=== PATIENT | female | born 1970 | race Caucasian/White ===

== ENCOUNTER 2018-07-13 12:46 | Emergency (ER) | payer OTHER, BC ==
[~2018-07-13] VITALS: Ht 157.5 cm; Wt 83.9 kg
[2018-07-13 13:11] VITALS: BP 166/77
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
[2018-07-13] MEDS ORDERED: HYDR-3164 PO (14:58)
[2018-07-13] MEDS ORDERED: CYCL10TA2 PO (14:58)
[2018-07-13] MEDS ORDERED: DICL50TA4 PO (14:58)
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
== END 2018-07-13 15:03 | disposition home or self-care (01) ==
LOC: ER 12:46
DX: S22.41XA Multiple fractures of ribs, right side, initial encounter for closed fracture (principal); E11.9 Type 2 diabetes mellitus without complications; F32.9 Major depressive disorder, single episode, unspecified; E78.00 Pure hypercholesterolemia, unspecified; I10 Essential (primary) hypertension; V49.49XA Driver injured in collision with other motor vehicles in traffic accident, initial encounter; Y93.I9 Activity, other involving external motion; Y92.488 Other paved roadways as the place of occurrence of the external cause; Y99.8 Other external cause status
CPT/HCPCS: 71101; 99284

== ENCOUNTER 2020-04-23 14:24 | Emergency (ER) | payer BC, OTHER ==
[~2020-04-23] VITALS: Ht 154.9 cm; Wt 110.0 kg
[~2020-04-23 14:24] MED LIST: CYCL10TA2 PO; DICL50TA4 PO; HYDR-3164 PO
[2020-04-23 15:00] VITALS: BP 123/52
[2020-04-23] MEDS ORDERED: HYDROcodone/APAP 5/325MG 1 TAB TABLET PO ONE (15:15)
[2020-04-23] MEDS ORDERED: ONDANSETRON ODT 4 MG TAB.RAPDIS. PO ONE (15:15)
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
--- NOTE | 2020-04-23 15:44 | RAD ---
EXAM: Left ankle, 3 views; left foot, 3 views. HISTORY: Fall. Pain. COMPARISON: None. FINDINGS: 3 views of the left foot and ankle are obtained. There is a minimally displaced distal fibu lar metaphysis. There is a tiny corticated ossicle inferior to the medial malleolus, likely due to th e sequela of remote injury. There is a tiny ossicle along the anterior talus, likely bridging and avu lsion fracture fragment of uncertain chronicity. The ankle mortise is intact. There is no osteochondr al lesion. There is a moderate plantar spur. There is enthesopathy at the Achilles tendon insertion. There is a mild hallux valgus deformity. IMPRESSION: 1. Minimally displaced distal fibular metaphyseal fracture. 2. Tiny ossicle inferior to the medial malleolus, likely due to sequela of remote injury. There is al so a tiny suspected avulsion fracture fragment of uncertain chronicity along the anterior talus. 3. Moderate plantar spur. 4. Mild hallux valgus. Electronically signed by: Imelda Holland MD (04/23/2020 3:40 PM) [facility]
--- NOTE | 2020-04-23 16:22 | RAD ---
EXAM: Left tibia and fibula, 2 views. HISTORY: Ankle fracture. COMPARISON: 04/23/2020 FINDINGS: 2 views of the tibia and fibular obtained. There is a minimally displaced distal fibular me tadiaphyseal fracture. The ankle mortise is intact. No osteochondral lesion is seen. No proximal tibi al or fibular fracture is seen. There is no periosteal reaction. There is no lytic or sclerotic osseo us lesion. There is soft tissue swelling. IMPRESSION: Minimally displaced distal fibular metaphyseal fracture. Please refer to the separate ank le radiograph report for additional findings. Electronically signed by: Imelda Holland MD (04/23/2020 4:19 PM) [facility]
[2020-04-23] MEDS ORDERED: HYDR-2761 PO (16:49)
== END 2020-04-23 17:50 | disposition home or self-care (01) ==
LOC: ER 14:24
DX: S82.832A Other fracture of upper and lower end of left fibula, initial encounter for closed fracture (principal); M79.672 Pain in left foot; F32.9 Major depressive disorder, single episode, unspecified; E11.9 Type 2 diabetes mellitus without complications; E78.00 Pure hypercholesterolemia, unspecified; I10 Essential (primary) hypertension; Z90.89 Acquired absence of other organs; Z98.890 Other specified postprocedural states; W01.0XXA Fall on same level from slipping, tripping and stumbling without subsequent striking against object, initial encounter; Y93.89 Activity, other specified; Y92.89 Other specified places as the place of occurrence of the external cause; Y99.8 Other external cause status
CPT/HCPCS: 29515; 73590; 73610; 73630; 99284